=== PATIENT | male | born 1990 | race Caucasian/White ===

== ENCOUNTER 2019-01-17 13:43 | Emergency (ER) | payer BC ==
--- NOTE | 2019-01-17 15:05 | EDM.PDOC ---
ED HPI GENERAL MEDICAL PROBLEM - General Chief Complaint: Laceration Stated Complaint: PALLET FELL ON HEAD Time Seen by Provider: 01/17/19 14:18 Source of Information: Reports: Patient History Limitations: Reports: No Limitations - History of Present Illness INITIAL COMMENTS - FREE TEXT/NARRATIVE: Patient presents with a left parietal laceration on his head that happened at work about 1310 today when a large, heavy pallet fell approximately 6 feet before hitting his head. He fell nearly to the ground before he caught himself and denies LOC, dizziness, balance problems, visual changes, vomiting or neck pain. He was wearing a cap which wasn't cut through from the impact so no debris was present. His last tetanus was 1-2 years ago he says. He doesn't take any blood thinners. - Related Data Allergies Allergy/AdvReac Type Severity Reaction Status Date / Time gentamicin [From Garamycin] Allergy Cannot Verified 01/17/19 14:39 Remember Sulfa (Sulfonamide Allergy Cannot Verified 01/17/19 14:39 Antibiotics) Remember Home Meds: Home Meds Fluticasone/Vilanterol [Breo Ellipta 200-25 MCG Inhalation Kit] 1 each IH DAILY 01/17/19 [History] Past Medical History - Past Health History Medical/Surgical History: Denies Medical/Surgical History Respiratory History: Reports: Asthma Social & Family History - Family History Family Medical History: Noncontributory - Tobacco Use Smoking Status *Q: Never Smoker - Caffeine Use Caffeine Use: Reports: Energy Drinks - Recreational Drug Use Recreational Drug Use: No ED ROS GENERAL - Review of Systems Review Of Systems: See Below Constitutional: Denies: Fever, Chills, Malaise, Weakness HEENT: Denies: Ear Discharge, Ear Pain, Nosebleed, Throat Pain, Vision Change Respiratory: Denies: Shortness of Breath, Cough Cardiovascular: Denies: Chest Pain, Lightheadedness, Syncope Endocrine: Reports: No Symptoms GI/Abdominal: Denies: Abdominal Pain, Nausea, Vomiting : Reports: No Symptoms Musculoskeletal: Denies: Neck Pain, Shoulder Pain, Arm Pain, Back Pain, Hand Pain, Leg Pain, Foot Pain, Joint Pain Skin: Denies: Cyanosis, Jaundice, Mottled, Pallor, Diaphoresis Neurological: Denies: Confusion, Dizziness, Numbness, Seizure, Syncope, Trouble Speaking, Difficulty Walking Psychiatric: Denies: Agitation, Anxiety, Confusion Hematologic/Lymphatic: Denies: Easy Bleeding ED EXAM, SKIN/RASH Exam: See Below Exam Limited By: No Limitations General Appearance: Alert, WD/WN, No Apparent Distress Ears: Normal External Exam, Normal Canal, Hearing Grossly Normal, Normal TMs Nose: Normal Inspection, No Blood Throat/Mouth: Normal Inspection, Normal Lips, Normal Voice, No Airway Compromise Head: Normocephalic, Other (There is a V-shaped laceration left parietal with swelling inferiorly. No crepitus or deformity to palpation.). No: Facial Swelling, Facial Tenderness Neck: Normal Inspection, Supple, Non-Tender, Full Range of Motion. No: Tender Lateral, Tender Midline Respiratory/Chest: No Respiratory Distress, Lungs Clear, Normal Breath Sounds Cardiovascular: Regular Rate, Rhythm, No Murmur Back Exam: Normal Inspection, Full Range of Motion Extremities: Normal Inspection, Normal Range of Motion Neurological: Alert, Oriented, CN II-XII Intact, Normal Cognition, No Motor/ Sensory Deficits Psychiatric: Normal Affect, Normal Mood Skin: Warm, Dry, Intact (except injury), Normal Color, No Rash Location, Skin: Head (V-shaped laceration two inches above left ear approx 4 cm in size) ED SKIN PROCEDURES - Laceration/Wound Repair Left Lateral Head Lac/Wound length In cm: 4 Appearance: Subcutaneous, Irregular, Clean Distal NVT: Neuro & Vascular Intact Anesthetic Type: Other (None) Skin Prep: Chlorhexidine (Hibiciens), Providone-Iodine (Betadine) Exploration/Debridement/Repair: Wound Explored Closed with: [place] # of Sutures: 5 Sterile Dressing Applied: Other (topical antibiotic) Tetanus Status Addressed: Yes Complications: No Course - Vital Signs Last Recorded V/S: Last Vital Signs Temp 97.8 F 01/17/19 13:45 Pulse 87 01/17/19 14:49 Resp 16 01/17/19 14:49 BP 157/85 H 01/17/19 14:49 Pulse Ox 97 01/17/19 13:45 - Re-Assessments/Exams Free Text/Narrative Re-Assessment/Exam: 01/17/19 15:06 Patient tells me that this was a very large, heavy pallet measuring about 5' x 10' in size and made out of 2x4s and 4x4s rather than the usual smaller, cashier credit ones. Based on this ELISSA I am getting a CT to rule out skull fracture in the absence of any neurological findings. 01/17/19 15:35 CT shows no evidence of fracture or intracranial pathology. Sterile technique was used to close the laceration with marvin as above. Patient discharged to home in stable condition after discussing findings, precautions and treatment plan. 01/17/19 15:[address] report confirms no fracture or intracranial pathology. Departure - Departure Time of Disposition: 15:28 Disposition: Home, Self-Care 01 Condition: Good Clinical Impression: Laceration of head Qualifiers: Encounter type: initial encounter Location of open wound of head: scalp Foreign body presence: without foreign body Qualified Code(s): S01.01XA - Laceration without foreign body of scalp, initial encounter - Discharge Information Instructions: Head Injury, Adult, [id number], Laceration Care, Adult, Easy-to -Read Referrals: Betzy Galvan MD [Primary Care Provider] - Additional Instructions: 1. Keep wound clean and dry except for showering as discussed. 2. Watch for signs of any problems. 3. You may use Tylenol or Ibuprofen as directed for pain if needed. 4. Follow up in clinic for staple removal in about 10 days. 5. Recheck sooner in clinic or ER if any problems or worsening.
[2019-01-17] MEDS ORDERED: Bacitracin Oint 30 GM Tube TOP ONE (15:26)
[2019-01-17] MEDS ORDERED: Bacitracin/Neomycin/Polymyxin B Oint 0.9 GM U/D Packet ONE (15:31)
[2019-01-17] MEDS ORDERED: Bacitracin/Neomycin/Polymyxin B Oint 0.9 GM U/D Packet TOP ONE (15:35)
--- NOTE | 2019-01-17 15:41 | CT ---
[id number] CT/CT Head WO IV EXAM: NONCONTRAST HEAD CT INDICATION: CHECK OF SKULL FRACTURE AND INTRACRANIAL PATHOLOGY. COMPARISON: None. DISCUSSION: Left scalp laceration with small associated hematoma. The ventricles and sulci are normal in size and configuration. The mendosa and white matter are normal in attenuation. No mass effect or midline shift. No acute hemorrhage or extra-axial fluid collection. No acute territorial infarct is identified. Mild paranasal sinus mucosal thickening. IMPRESSION: 1. Left scalp laceration with without associated calvarial fracture. 2. Negative for acute intracranial hemorrhage. Raudel Castro MD 01/17/19 2471 Thank you for allowing us to participate in the care of your patient.
== END 2019-01-17 15:50 | disposition home or self-care (01) ==
LOC: KA.ED 13:43
DX: S01.01XA Laceration without foreign body of scalp, initial encounter (principal); W20.8XXA Other cause of strike by thrown, projected or falling object, initial encounter; Z88.1 Allergy status to other antibiotic agents; Z88.2 Allergy status to sulfonamides
CPT/HCPCS: 12002; 70450; 99283-25